=== PATIENT | male | born 1985 | race African-American/Black ===

== ENCOUNTER 2018-03-24 13:58 | Emergency (ER) | payer MEDICAID ==
[~2018-03-24] VITALS: Ht 172.7 cm; Wt 78.2 kg
[~2018-03-24 13:58] MED LIST: BP MEDS; HYDR-3240 PO; LORA10TA72; TRAM150C25 PO
[2018-03-24 14:12] VITALS: BP 120/75
[2018-03-24] MEDS ORDERED: ONDANSETRON ODT 4 MG PO ONE (14:30)
[2018-03-24 14:47] LABS: BASOPHILS # (AUTO) 0.03 x10^3/uL (0-0.1); BASOPHILS % (AUTO) 1 % (0-1); EOSINOPHILS # (AUTO) 0.13 x10^3/uL (0-0.4); EOSINOPHILS % (AUTO) 3 % (1-7); LYMPHOCYTES # (AUTO) 1.98 x10^3/uL (1-3.4); LYMPHOCYTES % (AUTO) 41 % (22-44); MD NO; MEAN CORPUSCULAR HEMOGLOBIN 27.5 pg (27.5-34.5); MEAN CORPUSCULAR HGB CONC 32.9 g/dL (33.2-36.2); MEAN CORPUSCULAR VOLUME 83.5 fL (81-97); MEAN PLATELET VOLUME 8.4 fL (7.4-10.4); MONOCYTES # (AUTO) 0.39 x10^3/uL (0.2-0.8); MONOCYTES % (AUTO) 8 % (2-9); NEUTROPHILS # (AUTO) 2.34 x10^3/uL (1.8-6.8); NEUTROPHILS % (AUTO) 48 % (42-75); PLATELET COUNT 348 x10^3/uL (130-400); RED BLOOD COUNT 4.57 x10^6/uL (4.38-5.82)
[2018-03-24 14:54] LABS: ALBUMIN 3.6 g/dL (3.4-5.0); CHLORIDE 111 mmol/L (98-107)
[2018-03-24 15:00] LABS: ALANINE AMINOTRANSFERASE 24 U/L (12-78); ALKALINE PHOSPHATASE 105 U/L (45-117); ANION GAP 6 mmol/L (5-15); BILIRUBIN,TOTAL 0.3 mg/dL (0.2-1.0); CREATININE 0.89 mg/dL (0.7-1.3); TOTAL PROTEIN 7.3 g/dL (6.4-8.2)
[2018-03-24] MEDS ORDERED: ONDANSETRON ODT 4 MG ONE (15:17)
[2018-03-24] MEDS ORDERED: IBUPROFEN 200 MG TABLET ONE (15:56)
[2018-03-24] MEDS ORDERED: IBUPROFEN 200 MG TABLET PO ONE (16:00)
== END 2018-03-24 16:34 | disposition home or self-care (01) ==
LOC: ED 16:05
DX: R11.2 Nausea with vomiting, unspecified (principal); R19.7 Diarrhea, unspecified; Z90.49 Acquired absence of other specified parts of digestive tract
CPT/HCPCS: 36415; 80053; 83690; 85025; 99284; Q0162

== ENCOUNTER 2018-06-03 03:45 | Emergency (ER) | payer MEDICAID ==
[~2018-06-03] VITALS: Ht 172.7 cm; Wt 77.6 kg
[2018-06-03 03:45] VITALS: BP 129/80
[2018-06-03] MEDS ORDERED: METHOCARBAMOL 750 MG TABLET PO ONE (05:00)
[2018-06-03] MEDS ORDERED: KETOROLAC 30 MG/1 ML IM ONE (05:00)
[2018-06-03] MEDS ORDERED: METHOCARBAMOL 750 MG TABLET ONE (05:18)
[2018-06-03] MEDS ORDERED: KETOROLAC 30 MG/1 ML ONE (05:18)
== END 2018-06-03 07:25 | disposition home or self-care (01) ==
LOC: ED 04:18
DX: G89.11 Acute pain due to trauma (principal); M54.5 Low back pain; M79.652 Pain in left thigh; M25.572 Pain in left ankle and joints of left foot; I10 Essential (primary) hypertension; V03.10XA Pedestrian on foot injured in collision with car, pick-up truck or van in traffic accident, initial encounter; Y93.89 Activity, other specified; Y99.8 Other external cause status; Y92.410 Unspecified street and highway as the place of occurrence of the external cause
CPT/HCPCS: 72110; 99284

== ENCOUNTER 2018-08-18 19:47 | Emergency (ER) | payer OTHER, MEDICAID ==
[~2018-08-18] VITALS: Ht 172.7 cm; Wt 75.0 kg
[2018-08-18] MEDS ORDERED: CHOL2000 PO (20:00)
[2018-08-18] MEDS ORDERED: RISP3TAB24 PO (20:00)
[2018-08-18 20:47] LABS: MEAN CORPUSCULAR HEMOGLOBIN 27.9 pg (27.5-34.5); MEAN CORPUSCULAR HGB CONC 33.3 g/dL (33.2-36.2); MEAN CORPUSCULAR VOLUME 83.9 fL (81-97); MEAN PLATELET VOLUME 8.1 fL (7.4-10.4); PLATELET COUNT 313 x10^3/uL (130-400); RED BLOOD COUNT 4.37 x10^6/uL (4.38-5.82)
[2018-08-18 20:49] LABS: ALANINE AMINOTRANSFERASE 26 U/L (12-78); ALBUMIN 3.6 g/dL (3.4-5.0); ANION GAP 6 mmol/L (5-15); CALCIUM 8.7 mg/dL (8.5-10.1); CHLORIDE 108 mmol/L (98-107); CREATININE 1.23 mg/dL (0.7-1.3)
[2018-08-18 20:54] LABS: ALKALINE PHOSPHATASE 89 U/L (45-117); BILIRUBIN,TOTAL 0.2 mg/dL (0.2-1.0); TOTAL PROTEIN 7.1 g/dL (6.4-8.2); TROPONIN I < 0.015 ng/mL (0.000-0.045)
[2018-08-18 21:12] LABS: BASOPHILS # (AUTO) 0.03 x10^3/uL (0-0.1); BASOPHILS % (AUTO) 1 % (0-1); EOSINOPHILS # (AUTO) 0.17 x10^3/uL (0-0.4); EOSINOPHILS % (AUTO) 3 % (1-7); LYMPHOCYTES # (AUTO) 2.35 x10^3/uL (1-3.4); LYMPHOCYTES % (AUTO) 48 % (22-44); MONOCYTES # (AUTO) 0.52 x10^3/uL (0.2-0.8); MONOCYTES % (AUTO) 11 % (2-9); NEUTROPHILS # (AUTO) 1.86 x10^3/uL (1.8-6.8); NEUTROPHILS % (AUTO) 38 % (42-75)
[2018-08-18 21:13] LABS: MD SCAN
[2018-08-18 21:27] VITALS: BP 111/72
== END 2018-08-18 21:37 | disposition home or self-care (01) ==
LOC: ED 20:03
DX: R07.89 Other chest pain (principal); F17.210 Nicotine dependence, cigarettes, uncomplicated
CPT/HCPCS: 36415; 80053; 84484; 85025; 93005; 99284